=== PATIENT | male | born 1990 | race Hispanic/Latino ===

== ENCOUNTER 2016-11-18 15:42 | Emergency (ER) | payer OTHER ==
[~2016-11-18] VITALS: Ht 152.4 cm; Wt 63.5 kg
[~2016-11-18 15:42] MED LIST: AMOXICILLIN500 M1 PO; AMOXICILLIN500 M3 PO; AUGMENTIN 875 M1 TAB PO; IBU800 MG PO; TRAMADOL50 MG PO; TYLENOL #31 TAB PO; VICODIN 5-3001 EACH PO
--- NOTE | 2016-11-18 15:58 | ED PSYCHIATRIC COMPLAINT ---
See Addendum History of Present Illness General Chief Complaint: ETOH/Drug Related Complaint Stated Complaint: SMOKED MARIJUANA, BAD REACTION ??LACED MJ Source: patient, old records, EMS Exam Limitations: no limitations Vital Signs & Intake/Output Vital Signs & Intake/Output Vital Signs Date Time Temp Pulse Resp B/P B/P Pulse O2 O2 Flow FiO2 Mean Ox Delivery Rate 11/18 1700 98.8 74 18 126/69 98 Room Air 11/18 1552 Room Air 11/18 1547 82 18 133/84 97 Room Air Allergies Coded Allergies: NO KNOWN ALLERGIES (02/05/16) Reconcile Medications No Known Home Medications Triage Note: BIBA AFTER SMOKING MARIJUANA AND HAVING A BAD REACTION. FELT ANXIOUS, RACING THOUGHTS AND THAT HE COULDNT BREATH (SHALLOW BREATHS)-CONCERNED HE MARIJUANA MIGHT BE LACED WITH SOMETHING BECAUSE NORMALLY HE JUST FEELS RELAXED WHEN SMOKING. STATES HE SMOKES DAILY. ADMITS TO OTHER DRUG USE A FEW DAYS AGO BUT DOES NOT KNOW WHAT HE TOOK. UPON ARRIVAL STATES HE FEELS MUCH BETTER. ORIENTED X3, CALM AND COOPERATIVE. IN NO OVERT DISTRESS Triage Nurses Notes Reviewed? yes Onset: Just prior to arrival Duration: hour(s):, constant, continues in ED Timing: recent history Severity: moderate Associated Symptoms: anxiety HPI: 5 hours prior to admission patient admits to smoking marijuana but did not give him the usual feeling. Reports going to the [facility] became dizzy and sick to his stomach on one of the rides. He denies fever chills nausea vomiting diarrhea abdominal pain chest pain shortness breath headache dysuria rash bleeding or other coingestants. Past History Travel History Traveled to [place] past 21 day No Medical History Any Pertinent Medical History? see below for history Neurological: NONE EENT: NONE Cardiovascular: NONE Respiratory: NONE Gastrointestinal: NONE Hepatic: NONE Renal: NONE Musculoskeletal: NONE Psychiatric: NONE Endocrine: NONE Blood Disorders: NONE Cancer(s): NONE METAL TRIMMER/Reproductive: chlamydia Surgical History Surgical History: N Psychosocial History What is your primary language Telugu Tobacco Use: Current Daily Use Daily Tobacco Use Amount/Type: => 5 Cigarettes daily ETOH Use: occasional use Illicit Drug Use: marijuana Family History Hx Contributory? No Review of Systems Review of Systems Constitutional: Reports: no symptoms. EENTM: Reports: no symptoms. Respiratory: Reports: no symptoms. Cardiovascular: Reports: no symptoms. GI: Reports: no symptoms. Genitourinary: Reports: no symptoms. Musculoskeletal: Reports: no symptoms. Skin: Reports: no symptoms. Neurological/Psychological: Reports: see HPI, other. Hematologic/Endocrine: Reports: no symptoms. Immunologic/Allergic: Reports: no symptoms. All Other Systems: Reviewed and Negative Physical Exam Physical Exam General Appearance: well developed/nourished, mild distress Head: atraumatic Eyes: Bilateral: PERRL, EOMI. Ears, Nose, Throat: normal pharynx, normal ENT inspection, hearing grossly normal Neck: normal inspection, supple Respiratory: normal breath sounds Cardiovascular: regular rate/rhythm Gastrointestinal: soft, non-tender Extremities: normal range of motion Neurological/Psychiatric: no motor/sensory deficits, awake, alert, anxious, molecular biology director II-XII nml as tested, oriented x 3 Appearance/Memory/Insight: denies illness, impaired insight Behavoir/Eye Contact/Speech: cooperative, normal speech Thoughts/Hallucinations: normal thought pattern, no apparent hallucination Skin: intact, normal color, warm/dry SAD PERSONS Done? patient not suicidal Progress Differential Diagnosis: drug intoxication, drug overdose, drug withdrawal Plan of Care: Current Medications Sig/Omari Start time Last Medication Dose Stop Time Status Admin Lorazepam 1 MG ONE ONE 11/18 1600 UNVr (Ativan) 11/18 1601 Departure Departure Time of Disposition: 1638 Disposition: HOME OR SELF CARE Condition: Stable Clinical Impression Primary Impression: Marijuana abuse Referrals: PATIENT HAS NO PRIMARY CARE DR (PCP/Family) Departure Forms: General Discharge Information Prescriptions: Current Visit Scripts No Known Home Medications
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
[2016-11-18 19:00] VITALS: BP 112/56
== END 2016-11-18 19:15 ==
LOC: ERH 15:42
DX: F12.10 Cannabis abuse, uncomplicated (principal)
CPT/HCPCS: 80307

== ENCOUNTER 2017-07-06 16:40 | Inpatient (IN) | payer OTHER ==
[~2017-07-06] VITALS: Ht 170.2 cm; Wt 64.5 kg
[~2017-07-06 16:40] MED LIST changes: +ATIVAN0.5 M1 PO; +CLONIDINE HCL0.1 MG PO; +DEPAKOTE ER250 M1 PO; +DEPAKOTE ER500 M1 PO; +DIVALPROEX SOD250 M2 PO; +DIVALPROEX SOD500 M2 PO; +IBUPROFEN800 M1 PO; +KEFLEX500 M1 PO; +LEVSIN-SL0.125 MG SL; +LEVSIN0.125 M1 PO; +MELATONIN3 M4 PO; +NALTREXONE HCL50 M1 PO; +NICOTINE PATCH1 EAC1 TOP; +NICOTINE PATCH1 EAC2 TOP; +NICOTINE PATCH1 EAC3 TOP; +OLANZAPINE10 M1 PO; +OLANZAPINE20 M1 PO; +OLANZAPINE5 M2 PO; +OLANZAPINE7.5 M1 PO; +QUETIAPINE FUM100 M1 PO; +SEROQUEL50 M1 PO; +ZOFRAN ODT4 M1 SL
--- NOTE | 2017-07-06 16:55 | ED PSYCHIATRIC COMPLAINT ---
History of Present Illness General Chief Complaint: Psychiatric Related Complaint Stated Complaint: BIBA ON PEER FOR PSYCHOSIS Source: patient, old records, EMS, police Exam Limitations: clinical condition Vital Signs & Intake/Output Vital Signs & Intake/Output Vital Signs Date Time Temp Pulse Resp B/P B/P Pulse O2 O2 Flow FiO2 Mean Ox Delivery Rate 07/07 0946 966.8 110 22 110/76 98 Room Air 07/07 0639 97.7 97 18 123/73 97 Room Air 07/07 0333 72 16 07/06 2306 80 18 147/84 99 Room Air 07/06 1855 96.0 122 18 150/73 99 Room Air 07/06 1701 95.7 92 18 165/100 97 Room Air Allergies Coded Allergies: NO KNOWN ALLERGIES (02/05/16) Reconcile Medications Naltrexone HCl 50 MG TABLET 1 TAB PO DAILY prevention Naltrexone 50 mg po daily Quetiapine Fumarate 100 MG TABLET 3 TAB PO AT BEDTIME mood stabilizer Quetiapine Fumarate (Seroquel) 50 MG TABLET 50 MG PO QAM mood stabilizer Triage Nurses Notes Reviewed? yes HPI: Patient brought in on a police paper after he locked himself in his bathroom at 3:00 in the morning and would not open the door all day. His physician or nurse went to give him his medications previously refused to open the door and take his medications. Patient has multiple ED visits and admissions for the same. His uncooperative upon presentation to the emergency room. Patient has tangential thinking. (Harshal HENDERSON,Gary Lion) Past History Travel History Traveled to [place] past 21 day No Medical History Any Pertinent Medical History? see below for history Neurological: NONE EENT: NONE Cardiovascular: NONE Respiratory: NONE Gastrointestinal: NONE Hepatic: NONE Renal: NONE Musculoskeletal: NONE Psychiatric: anxiety, depression, psychosis, substance abuse Endocrine: NONE Blood Disorders: NONE Cancer(s): NONE CLINICAL TEAM MANAGER/Reproductive: chlamydia History of MRSA: No History of VRE: No History of CDIFF: No Tetanus Vaccine: 03/09/17 Surgical History Surgical History: non-contributory, N Psychosocial History Who do you live with Mother What is your primary language Indonesian Tobacco Use: Never used ETOH Use: denies use Illicit Drug Use: denies illicit drug use Family History Hx Contributory? No (Harshal HENDERSON,Gary Lion) Review of Systems Review of Systems Constitutional: Reports: no symptoms. EENTM: Reports: no symptoms. Respiratory: Reports: no symptoms. Cardiovascular: Reports: no symptoms. GI: Reports: no symptoms. Genitourinary: Reports: no symptoms. Musculoskeletal: Reports: no symptoms. Skin: Reports: no symptoms. Neurological/Psychological: Reports: no symptoms. Hematologic/Endocrine: Reports: no symptoms. Immunologic/Allergic: Reports: no symptoms. All Other Systems: Reviewed and Negative (Harshal HENDERSON,Gary Lion) Physical Exam Physical Exam General Appearance: well developed/nourished, mild distress Head: atraumatic Eyes: Bilateral: PERRL, EOMI. Ears, Nose, Throat: normal pharynx, normal ENT inspection, hearing grossly normal Neck: normal inspection, supple Respiratory: normal breath sounds Cardiovascular: regular rate/rhythm Gastrointestinal: soft, non-tender Extremities: normal range of motion Neurological/Psychiatric: no motor/sensory deficits, awake, agitated Appearance/Memory/Insight: denies illness Behavoir/Eye Contact/Speech: uncooperative, refused to answer Thoughts/Hallucinations: TANGENTAL Skin: intact, normal color, warm/dry SAD PERSONS Done? CRISIS CONSULT OBTAINED (Harshal HENDERSON,Gary Lion) Progress Differential Diagnosis: drug intoxication, drug overdose, drug withdrawal, electrolyte abnormality Plan of Care: Orders Procedure Date/time Status Continuous Observation Monitor 07/07 1900 Active Continuous Observation Monitor 07/07 1500 Active Continuous Observation Monitor 07/07 1100 Active Admit to inpatient psych 07/07 1047 Active URINE DRUGS OF ABUSE 07/07 0730 Complete URINALYSIS 07/07 0730 Complete Continuous Observation Monitor 07/07 0700 Active Restraint- Discontinue 07/06 1800 Active Restraint- Behavioral (Order) 07/06 1656 Active Continuous Observation Monitor 07/06 1654 Active ETHANOL 07/06 1654 Complete COMPREHENSIVE METABOLIC PANEL 07/06 1654 Complete CBC WITHOUT DIFFERENTIAL 07/06 165 Complete ED CRISIS PSYCH CONSULT 07/06 1654 Active Laboratory Tests 07/07/17 0743: Urine Opiates Screen < 100.00, Methadone Screen 75, Barbiturate Screen < 60, Ur Phencyclidine Scrn 14.00, Amphetamines Screen 203, U Benzodiazepines Scrn < 85, Urine Cocaine Screen < 50, Urine Cannabis Screen 79.10 H, Urine Color ARISTEO, Urine Clarity CLEAR, Urine pH 6.0, Ur Specific [place] >= 1.030, Urine Protein TRACE H, Urine Ketones 15 H, Urine Nitrite NEG, Urine Bilirubin NEG@ICTO, Urine Urobilinogen 0.2, Ur Leukocyte Esterase NEG, Ur Microscopic SEDIMENT EXAMINED, Urine RBC 3-5, Urine WBC 1-3 H, Urine Bacteria RARE H, Urine Mucus PACKD H, Urine Hemoglobin TRACE-INTACT H, Urine Glucose NEG 07/06/17 1728: Anion Gap 20 H, Estimated GFR > 60, BUN/Creatinine Ratio 20.0, Glucose 97, Calcium 10.4 H, Total Bilirubin 0.9, AST 28, ALT 38, Alkaline Phosphatase 65, Total Protein 8.8 H, Albumin 5.3 H, Globulin 3.5, Albumin/Globulin Ratio 1.5, CBC w Diff NO MAN DIFF REQ, RBC 5.05, MCV 87.4, MCH 29.7, RDW 13.4, MPV 7.6, Gran % 78.6 H, Lymphocytes % 12.2 L, Monocytes % 8.2, Eosinophils % 0.7, Basophils % 0.3, Absolute Granulocytes 7.5 H, Absolute Lymphocytes 1.2, Absolute Monocytes 0.8 H, Absolute Eosinophils 0.1, Absolute Basophils 0, PUBS MCHC 34.0, Serum Alcohol < 10.0 07/06/17 1654: Methadone Screen Cancelled, Barbiturate Screen Cancelled, Ur Phencyclidine Scrn Cancelled, Amphetamines Screen Cancelled, U Benzodiazepines Scrn Cancelled, Urine Cocaine Screen Cancelled, Urine Cannabis Screen Cancelled, Urine Color Cancelled, Urine Clarity Cancelled, Urine pH Cancelled, Ur Specific [place] Cancelled, Urine Protein Cancelled, Urine Ketones Cancelled, Urine Nitrite Cancelled, Urine Bilirubin Cancelled, Urine Urobilinogen Cancelled, Ur Leukocyte Esterase Cancelled, Ur Microscopic Cancelled, Urine Hemoglobin Cancelled, Urine Glucose Cancelled Hand-Off Endorsed To: Iman HENDERSON,Willard Ballard Endorsed Time: 1899 Pending: consult (Harshal HENDERSON,Gary Lion) Comments: 07/06/2017 7:15:42 PM patient signed out to me by Dr. Caputo at shift change management director. 07/07/2017 7:37:48 AM patient signed out to Dr. Walsh at shift change management director. (Iman HENDERSON,Willard Ballard) Departure Departure Disposition: STILL A PATIENT Condition: Stable Clinical Impression Primary Impression: Bipolar 1 disorder Referrals: Anayeli Felder MD (PCP/Family) Departure Forms: Customer Survey General Discharge Information (Harshal HENDERSON,Gary Lion) Psych Admission Note Psychiatric Admission: I have seen and evaluated ANGYTIARA. I have also reviewed all the pertinent lab results and diagnostic results. ANGYTIARA will be admitted to our inpatient Psychiatric unit for treatment and care. (Jillian HENDERSON,Brayan)
[2017-07-06 17:46] LABS: ABSOLUTE BASOPHIL COUNT 0 /CUMM (0.0-0.2); ABSOLUTE EOSINOPHIL COUNT 0.1 /CUMM (0.0-0.7); ABSOLUTE GRANULOCYTE CT 7.5 /CUMM (1.4-6.5); ABSOLUTE LYMPH COUNT 1.2 /CUMM (1.2-3.4); ABSOLUTE MONOCYTE COUNT 0.8 /CUMM (0.10-0.60); BASOPHIL % 0.3 % (0.0-2.0); EOSINOPHIL % 0.7 % (0-5); GRANULOCYTE % 78.6 % (42.2-75.2); HEMATOCRIT 44.2 % (42-52); MEAN CORPUSCULAR HGB 29.7 PG (27.0-31.0); MEAN CORPUSCULAR VOLUME 87.4 FL (80.0-94.0); MEAN PLATELET VOLUME 7.6 FL (7.4-10.4); PLATELET COUNT 315 /CUMM (130-400); RBC DISTRIBUTION WIDTH 13.4 % (11.5-14.5); RED BLOOD CELL CT 5.05 /CUMM (4.70-6.10); WHITE BLOOD CELL COUNT 9.5 /CUMM (4.8-10.8)
--- NOTE | 2017-07-06 20:58 | ED PSY CRISIS COLLATERAL NOTE ---
See Addendum Collateral Note Collateral Note Family/Inform/Yuan Contacts: Spoke with Mom, Mia Ellison, on the phone for collateral. Mom reported that he has not eaten or slept since Tuesday 07/03 night and that last night , he was awake all night, locked in the bathroom of their home. He would not let mom in, even when she had to use the bathroom herself. She reported he continued to say "you don't need to get in here" and became increasingly angry and hostile. Mom reported that he took one med that visiting nurse left him this morning but not the Seroquel which she believed he needed. She reported a recent med change "a shot" which she explained is supposed to be long lasting, prescribed by Michael REYNOSO. She stated she still thinks he needs the pills and worries the injection isn't working. She said "he comes in here all the time for this stuff so I don't know what is going to happen". She reported she thought perhaps he took something, stating he smokes marijuana and takes "corby " but she is unsure of the type of drug that is.
--- NOTE | 2017-07-06 21:48 | ED PSYCH CRISIS CONSULTATION ---
See Addendum Crisis Consult Basic Assessment Date of Consult: 07/06/17 Responsible Person/Accompanied By: BIBA/PEER Insurance Authorization: Insurance #1: Insurance name: KEARNEY 140Fire Phone number: Policy number: [id number] Group number: [id number] Authorization number: ED Provider: Patient's ED Provider: Gary Caputo MD Primary Care Physician: Patient's PCP: Anayeli Felder MD PCP's Current Psychiatrist: Anayeli Felder MD Chief Complaint: Psychiatric Related Complaint Patient's Quote: "It's not right, but I handled it not immature" Present Illness: Pt is a 26 year old male, he is out of restraints and keeping in control of himself. Pt is known to have a close relationship with [facility], recently due to psychotic episodes, and med management concerns. Pt has been in the emergency room a few times in June 2017, and is currently in our IOP. Pt has a visiting nurse and lives with his Mother. Upon evaluation this evening , pt represents with visual hallucinations stating "who is that", as he looks to the left in his hospital room. Pt states I've been seeing demons, and "maybe that is something from my past". Pt reports "its not right, but I handled it not immature, ya know?". Pt not making sense, but is engaged in full intent eye contact. Pt is intense and speaking about being in the bathroom prior to coming in the the ER, he recalls the nurse trying to get him to come out and states they were whispering to his Mother to get me to come here. He states " I was in the bathroom, ya know how I rap in there, I was rapping all day". Pt is calm, although is experiencing internal stimuli including ah and vh. He was expected to get an injectble on the Dr. Felder confirmed he got the medicine. He reports the medicine "in the pills is empty", which is why he wasn't going to take it today. Pt asking to leave and call his Mother, pt informed he is on a PEER and needs to be cleared from the psychiatry department in the morning. Pt is having trouble resting at this time, and doesn't think he will be able to sleep. Pt denies recreational drug use. Mom reports he may have done "mollies". Pt states "Id smoke 100's L's right now if I could but I'm on probation". Pt denies si/hi. Patient's Address: [address] [place] [address] Other Phone Number: Who Do You Live With? Mother Family/Informants Interviewed: see note Allergies - Coded Allergies: NO KNOWN ALLERGIES (02/05/16) Current Medications - Scheduled Medications Naltrexone HCl 50 MG TABLET 1 TAB PO DAILY prevention #14 TAB Prescribed by Gary Rice on 06/04/17 Quetiapine Fumarate 100 MG TABLET 3 TAB PO AT BEDTIME mood stabilizer #14 TAB Prescribed by Gary Rice on 06/04/17 Quetiapine Fumarate (Seroquel) 50 MG TABLET 50 MG PO QAM mood stabilizer #14 TAB Prescribed by Gary Rice on 06/04/17 Laboratory Results: Laboratory Tests 07/06/17 1728: Anion Gap 20 H, Estimated GFR > 60, BUN/Creatinine Ratio 20.0, Glucose 97, Calcium 10.4 H, Total Bilirubin 0.9, AST 28, ALT 38, Alkaline Phosphatase 65, Total Protein 8.8 H, Albumin 5.3 H, Globulin 3.5, Albumin/Globulin Ratio 1.5, CBC w Diff NO MAN DIFF REQ, RBC 5.05, MCV 87.4, MCH 29.7, RDW 13.4, MPV 7.6, Gran % 78.6 H, Lymphocytes % 12.2 L, Monocytes % 8.2, Eosinophils % 0.7, Basophils % 0.3, Absolute Granulocytes 7.5 H, Absolute Lymphocytes 1.2, Absolute Monocytes 0.8 H, Absolute Eosinophils 0.1, Absolute Basophils 0, PUBS MCHC 34.0, Serum Alcohol < 10.0 Past History Past Medical History Neurological: NONE EENT: NONE Cardiovascular: NONE Respiratory: NONE Gastrointestinal: NONE Hepatic: NONE Renal: NONE Musculoskeletal: NONE Psychiatric: anxiety, depression, psychosis, substance abuse Endocrine: NONE Blood Disorders: NONE Cancer(s): NONE SHOE REPAIRER/Reproductive: chlamydia Past Surgical History Surgical History: none, non-contributory Psychosocial History Strengths/Capabilities: Supportive mother Physical Limitations (Interventions): none observed or identified Psychiatric Treatment History Psych Treatment Psychiatric Treatment Yes Inpatient Treatment Yes Outpatient Treatment Yes Location of Treatment [facility]/ IOP Reason for Treatment psychosis Dates of Treatment currently and May 2017 last admission Response to Treatment trying to be compliant Diagnosis by History: F29 Schizophrenia spectrum, unspecified F12.20 Cannabis Use Disorder F32.9 Unspecified Depression Substance Use/Abuse History Drug Use/Abuse Substances Used/Abused Yes Substance Used/Abused Marijuana First Use teenage Last Used unknown How much used/taken varies How often varies For how long on and off for years Route of use smokes Substance Abuse Treatment Substance Abuse Treatment Past Substance Abuse [place] Yes Inpatient Treatment Yes Outpatient Treatment Yes Location of Treatment [place] [facility] Reason for Treatment schizophrenia/ marajuana use Dates of Treatment currently Response to Treatment attends Comments: "I'd smoke 100s of L's right now of I could but Im on probation" Current Mental Status Mental Status Orientation: Confused Affect: Anxious, Inappropriate, Labile Speech: Incoherent, Mumbled Neuro-vegetative: Concentration Poor, Sleep Disturbance Appearance Appearance- Dress/Hygiene: Shaved eyebrows otherwise wnl Behaviors Thought Process: Disorganized Thought Content: Auditory Hallucinations, Paranoid, Visual Hallucinations Memory: WNL Insight: Poor SI/HI Risk Assessment Past Suicidal Ideation/Attempts Yes Current Suicidal Ideation/Att No Past Homicidal Ideation/Att: No Current Homicidal Ideation/Attempts No Degree of Intent: None Gravely Disabled: Lack of Insight Risk Factors: high anxiety/distress, SA/MH hospitalized, poor impulse control, male Lethality Ratin (mild) PTSD Checklist PTSD Done? pt unable to participate ED Management Sitter: Yes Restraints: Yes (not currently) DSM5/PS Stressors/Medical Prob Diagnosis' (DSM 5, Stressors, Medical): F29 Schizophrenia spectrum, unspecified F12.20 Cannabis Use Disorder F32.9 Unspecified Depression Current GAF: 28 Departure Disposition Psych Medical Clearance Date: 07/06/17 Medically Cleared at: 2030 Time Started: 2029 Time Ended: 2141 Psychiatrist Consulted: Anayeli Felder MD Date Disposition Established: 07/06/17 Time Disposition Established: 2141 Plan for Disposition - Modality: IOP Facility: [facility] Follow-up Appt Date: 07/07/17 Contact: [facility] Telephone: [phone] Rationale for Disposition: Consulted with Dr. Felder, pt held due to PEER, but recommends discharge with plan to attend [facility] tomorrow morning. Referrals Anayeli Felder MD (PCP/Family)
--- NOTE | 2017-07-07 11:39 | IP CRISIS DIAG ASSESS PSYCH ---
Diagnostic Assessment Basic Assessment Insurance Authorization: Insurance #1: Insurance name: [facility] Phone number: Policy number: [id number] Group number: [id number] Authorization number: # [id number] 07/07/17: This senior medical writer spoke to Preeti and joe Robles to give clinical information. Pt approved for 7 days 07/07-07/13 with review due on the with Tracy X [id number] Member Name Member ID Member Subscriber Name Subscriber ID TIARA TRAVIS [id number] 1990 TIARA TRAVIS [id number] Pended Authorization # Client Authorization # Type of Request [id number] INITIAL Date of Admission/ Start of Services Requested From Submission Date 07/07/2017 07/07/2017 07/07/2017 Primary Care Physician: Patient's PCP: Anayeli Felder MD PCP's Patient's Quote: "It's not right, but I handled it not immature" Present Illness: Pt is a 26 year old male, he is out of restraints and keeping in control of himself. Pt is known to have a close relationship with [facility], recently due to psychotic episodes, and med management concerns. Pt has been in the emergency room a few times in June 2017, and is currently in our IOP. Pt has a visiting nurse and lives with his Mother. Upon evaluation this evening , pt represents with visual hallucinations stating "who is that", as he looks to the left in his hospital room. Pt states I've been seeing demons, and "maybe that is something from my past". Pt reports "its not right, but I handled it not immature, ya know?". Pt not making sense, but is engaged in full intent eye contact. Pt is intense and speaking about being in the bathroom prior to coming in the the ER, he recalls the nurse trying to get him to come out and states they were whispering to his Mother to get me to come here. He states " I was in the bathroom, ya know how I rap in there, I was rapping all day". Pt is calm, although is experiencing internal stimuli including ah and vh. He was expected to get an injectble on the Dr. Felder confirmed he got the medicine. He reports the medicine "in the pills is empty", which is why he wasn't going to take it today. Pt asking to leave and call his Mother, pt informed he is on a PEER and needs to be cleared from the psychiatry department in the morning. Pt is having trouble resting at this time, and doesn't think he will be able to sleep. Pt denies recreational drug use. Mom reports he may have done "mollies". Pt states "Id smoke 100's L's right now if I could but I'm on probation". Pt denies si/hi. >>>>>Cuca Wander [facility] Crisis re-evaluated pt this am. He denies SI/HI/AH/VH at present. He presents with poor eye contact and insight into MH/SA. Per pt he cannot recall yesterday or meeting with the previous speech and language clinician. Pt is unable to provide coherent story of why he was agitated upon coming in to the ED for evaluation or why he locked himself in the bathroom for over 3 hours. Pt said he usually goes into the bathroom to smoke or lays down in the shower for a few hours. He admits to using cannabis but denies PCP use at this time. Pt has hx of PCP and heroin use. Pt said he does not need rehab or medications . This senior medical writer spoke with JUANCHO REYNOSO and pt has had recent medication change. Per pt's insurance the Haldol IM cannot be covered. It is unclear if pt will need to switch anti-psychotics due to insurance complications. Case consulted with Dr. Do and recommends inpatient admission as pt is acute risk to self and others at this time. Patient's Address: [address] [place] [address] Other Phone Number: Who Do You Live With? Mother Feel Safe Where You Live? Yes Marital Status: single Do You Have Children? No Primary Language? [place]ore[place] Language(s) Spoken At Home: [place]orese Family/Informants Interviewed: see note Allergies - Coded Allergies: NO KNOWN ALLERGIES (02/05/16) Current Medications - Scheduled Medications Naltrexone HCl 50 MG TABLET 1 TAB PO DAILY prevention #14 TAB Prescribed by Gary Rice on 06/04/17 Quetiapine Fumarate 100 MG TABLET 3 TAB PO AT BEDTIME mood stabilizer #14 TAB Prescribed by Gary Rice on 06/04/17 Quetiapine Fumarate (Seroquel) 50 MG TABLET 50 MG PO QAM mood stabilizer #14 TAB Prescribed by Gary Rice on 06/04/17 Past History Past Surgical History Surgical History NONE Abuse/Trauma History Trauma History/Current Trauma: Denies Legal History Current Legal Status: on probation Have you ever been arrested? Yes Number of Arrests: [address] Dates: none Web Search Evaluator yes Psychosocial History Strengths/Capabilities: Supportive mother Physical Limitations (Interventions): none observed or identified Psychiatric Treatment History Psych Treatment Psychiatric Treatment Yes Inpatient Treatment Yes Outpatient Treatment Yes Location of Treatment CPS/ IOP Reason for Treatment psychosis Dates of Treatment currently and May 2017 last admission Response to Treatment trying to be compliant Diagnosis by History: F29 Schizophrenia spectrum, unspecified F12.20 Cannabis Use Disorder F32.9 Unspecified Depression Risk Factors: high anxiety/distress, SA/MH hospitalized, poor impulse control, male Substance Use/Abuse History Drug Use/Abuse minimum 12mo Hx Substances Used/Abused Yes Substance Used/Abused Marijuana First Use teenage Last Used unknown How much used/taken varies How often varies For how long on and off for years Route of use smokes Substance Abuse Treatment Substance Abuse Treatment Past Substance Abuse [place] Yes Inpatient Treatment Yes Outpatient Treatment Yes Location of Treatment [facility] Reason for Treatment schizophrenia/ marajuana use Dates of Treatment currently Response to Treatment attends Sexual History Sexually Active No # of partners 0 Sexual Orientation Heterosexual Use of Protection No Sexual Concerns: none stated Education History Highest Level of Education: 11th grade Intends to get GED; reinforced this visit. Preferred Learning Style: visual Current Mental Status Mental Status Orientation: Confused Affect: Anxious, Inappropriate, Labile Speech: Incoherent, Mumbled Neuro-vegetative: Concentration Poor, Sleep Disturbance Appearance Appearance- Dress/Hygiene: Shaved eyebrows otherwise wnl Behaviors Thought Process: Disorganized Thought Content: Auditory Hallucinations, Paranoid, Visual Hallucinations Memory: WNL Insight: Poor SI/HI Risk Assessment - Minimum 6mo History- Past Suicidal Ideation/Attempts Yes Current Suicidal Ideation/Att No Past Homicidal Ideation/Att: No Current Homicidal Ideation/Attempts No Degree of Intent: None Gravely Disabled: Lack of Insight Risk Factors: high anxiety/distress, SA/MH hospitalized, poor impulse control, male Lethality Ratin (mild) Needs/Init TX Plan/Goals: Mood stabilization and safety, group and individual therapy, psychoeducation, medication consulation , family meeting and coping skills. AUDIT-C Questionnaire: AUDIT-C Questionnaire: Response Value ETOH use in the past year Never 0 # drinks typical/day Doesn't Drink 0 6 or > drinks per occasion Never 0 Total 0 DSM5/PS Stressors/Medical Prob Diagnosis' (DSM 5, Stressors, Medical): F29 Schizophrenia spectrum, unspecified F12.20 Cannabis Use Disorder F32.9 Unspecified Depression Current GAF: 28
--- NOTE | 2017-07-07 11:45 | SOCIAL WORKER SOCIAL HX PSYCH ---
Social History Basic Assessment Insurance Authorization: Insurance #1: Insurance name: [facility] Phone number: Policy number: [id number] Group number: [id number] Authorization number: Curr Source of Income/Entitlements: Medicaid Primary Care Physician: Patient's PCP: Anayeli Felder MD PCP's Present Problem: Pt is a 26 year old male, he is out of restraints and keeping in control of himself. Pt is known to have a close relationship with [facility], recently due to psychotic episodes, and med management concerns. Pt has been in the emergency room a few times in June 2017, and is currently in our IOP. Pt has a visiting nurse and lives with his Mother. Upon evaluation this evening , pt represents with visual hallucinations stating "who is that", as he looks to the left in his hospital room. Pt states I've been seeing demons, and "maybe that is something from my past". Pt reports "its not right, but I handled it not immature, ya know?". Pt not making sense, but is engaged in full intent eye contact. Pt is intense and speaking about being in the bathroom prior to coming in the the ER, he recalls the nurse trying to get him to come out and states they were whispering to his Mother to get me to come here. He states " I was in the bathroom, ya know how I rap in there, I was rapping all day". Pt is calm, although is experiencing internal stimuli including ah and vh. He was expected to get an injectble on the Dr. Felder confirmed he got the medicine. He reports the medicine "in the pills is empty", which is why he wasn't going to take it today. Pt asking to leave and call his Mother, pt informed he is on a PEER and needs to be cleared from the psychiatry department in the morning. Pt is having trouble resting at this time, and doesn't think he will be able to sleep. Pt denies recreational drug use. Mom reports he may have done "mollies". Pt states "Id smoke 100's L's right now if I could but I'm on probation". Pt denies si/hi.>>>>Cuca Vickers [facility] Crisis re-evaluated pt this am. He denies SI/HI/AH/VH at present. He presents with poor eye contact and insight into MH/SA. Per pt he cannot recall yesterday or meeting with the previous electrical engineering professor. Pt is unable to provide coherent story of why he was agitated upon coming in to the ED for evaluation or why he locked himself in the bathroom for over 3 hours. Pt said he usually goes into the bathroom to smoke or lays down in the shower for a few hours. He admits to using cannabis but denies PCP use at this time. Pt has hx of PCP and heroin use. Pt said he does not need rehab or medications . This racebook writer spoke with JUANCHO REYNOSO and pt has had recent medication change. Per pt's insurance the Haldol IM cannot be covered. It is unclear if pt will need to switch anti-psychotics due to insurance complications. Case consulted with Dr. Do and recommends inpatient admission as pt is acute risk to self and others at this time. Primary Language? [place] Language(s) Spoken At Home: [place] Island[place] Living Situation Other Living Arrangement: relative's/guardian's tariq Feel Safe Where You Are Living Yes Allergies - Coded Allergies: NO KNOWN ALLERGIES (02/05/16) Current Medications - Scheduled Medications Naltrexone HCl 50 MG TABLET 1 TAB PO DAILY prevention #14 TAB Prescribed by Gary Rice on 06/04/17 Quetiapine Fumarate 100 MG TABLET 3 TAB PO AT BEDTIME mood stabilizer #14 TAB Prescribed by Gary Rice on 06/04/17 Quetiapine Fumarate (Seroquel) 50 MG TABLET 50 MG PO QAM mood stabilizer #14 TAB Prescribed by Gary Rice on 06/04/17 Past History Past Medical History Neurological: NONE EENT: NONE Cardiovascular: NONE Respiratory: NONE Gastrointestinal: NONE Hepatic: NONE Renal: NONE Musculoskeletal: NONE Psychiatric: anxiety, depression, psychosis, substance abuse Endocrine: NONE Blood Disorders: NONE Cancer(s): NONE COMMUNITY CULTURAL DEVELOPMENT OFFICER/Reproductive: chlamydia Past Surgical History Surgical History: non-contributory, N /Family History Place/Country of Origin: [place], [place] Childhood Family Constellation: 05/27/17: He grew up with his mother, grandmother, one brother and one sister, aunt and uncle. He met his father once, but talks to him occasionally. Raised by his Mom. Did not know his father as a child. Has 2 brothers and 2 sisters. Primary Childhood Caretakers: mother, grandparent(s), aunt, uncle Family Life During Childhood: "Good" DCF Involvement? No Relationship w/Mother: Pt does not know his mother's age. Reports he has a "good" relationship with his Mom. 05/27/17: Endorses above, but he is not happy now with Mom. Relationship w/Father: Does not know his father's age. states he and his father "understand each other." 05/27/17: Relationship is 'OK.' Any Sibling(s)? Yes Sibling's Gender(s)/Age(s): female Sibling 1:, male Sibling 2: Relationship w/Sibling(s): "good" Relationship w/Friends: "I have some good friends" 05/27/17: "I can't remember the last time I had an argument with a friend." Family Psych/Sub Abuse/Add Hx: denies Abuse/Trauma History Trauma History/Current Trauma: Denies Legal History Legal Guardian/Address/Phone: NA Current Legal Status: on probation Pending Court Dates: none Have you ever been arrested Yes Number of Arrests: 3 Hx of Juvenile Legal Charges? Yes If Yes: theft Hx of Adult Legal Charges? Yes If Yes: misdemeanor List/Date Most Recent Lgl Chgs: unknown Chgs/Dts/Incarcerations/Sentnc Two years left on probation. Civil Proceedings: na Domestic Relations Court: na Child Protective Serv Involvmnt na Tire Bagger yes Psychosocial History Primary Support System: mother, sibling(s), grandparent(s), friend Strengths/Capabilities: Supportive mother Weaknesses: relapse Physical Limitations (Interventions): none observed or identified Last Physical: Two years History of Seizures? No History of Blackouts? No ADL Limitations: none reported [place]/Social/Peer Relations reports he has supportive friends Meaningful Activities: being outdoors 05/27/17 The patient is good at art. Childhood Jewish: Scientology Current Sikh Affiliation: Lutheran, "I would follow what my family does; Lutheran. Is Spirituality Important to You? yes Patient's Ethnicity: [place] Cultural/Ethnic Issues: none reported Are There Developmental Issues? No Milestones Achieved: fine motor, gross motor Psychiatric Treatment History Psych Treatment Inpatient Treatment Yes Outpatient Treatment Yes Location of Treatment CPS/ IOP Reason for Treatment psychosis Dates of Treatment currently and May 2017 last admission Response to Treatment trying to be compliant Treatment of Prior Episodes: as above Diagnosis: F29 Schizophrenia spectrum, unspecified F12.20 Cannabis Use Disorder F32.9 Unspecified Depression Psychodynamic Issues: He wants full-time work. Difficult relationship with mother at this time. Risk Factors: high anxiety/distress, SA/MH hospitalized, poor impulse control, male Substance Use/Abuse History Drug Use/Abuse Substance Used/Abused Marijuana First Use teenage Last Used unknown How much used/taken varies How often varies For how long on and off for years Route of use smokes Have Had Periods of Sobriety? No Relapse History? Yes Have You Ever Attended AA? No Do You Attend AA Currently? No Do You Have a Sponsor? No Other Community Resources Used: probation Symptoms of Use: woresning psychosis Substance Abuse Treatment Substance Abuse Treatment Inpatient Treatment Yes Outpatient Treatment Yes Location of Treatment [facility] Reason for Treatment schizophrenia/ marajuana use Dates of Treatment currently Response to Treatment attends Sexual History Sexually Active No # of partners 0 Sexual Orientation Heterosexual Use of Protection No Sexual Concerns: none stated Education History Highest Level of Education: 11th grade Intends to get GED; reinforced this visit. Highest Grade Completed: 11 Vocational Year Completed: na Number of College Years: 0 College Degree/Major: NA Other Degree(s): NA Preferred Learning Style: visual HX of Learning Difficulties: He reports a difficulty with concentration, but not with subjects that he likes. Other diop, no other learing difficulties. Barriers to Learning: None reported Special Communication Needs: None reported Employment History Not in Labor Force: 3-4 yrs ago worked at [employer] and a [employer] No. of Jobs in Last 5 Years: 3 Attendance: He has missed days at [employer]. Performance: Good Comments: Pt said he recently got a job, " [employer] ( ?) " History Have You Been in The ? No If Yes, Explain: NA Type of Discharge: NA Date of Discharge: NA Current Mental Status Problem List: 1. Marijuana abuse 2. PCP (phencyclidine) abuse Mental Status Orientation: Confused Affect: Anxious, Inappropriate, Labile Speech: Incoherent, Mumbled Neuro-vegetative: Concentration Poor, Sleep Disturbance Appearance Appearance- Dress/Hygiene: Shaved eyebrows otherwise wnl Behaviors Thought Process: Disorganized Thought Content: Auditory Hallucinations, Paranoid, Visual Hallucinations Memory: WNL Insight: Poor SI/HI Risk Assessment Past Suicidal Ideation/Attempts Yes Current Suicidal Ideation/Att No Past Homicidal Ideation/Att: No Current Homicidal Ideation/Attempts No Degree of Intent: None Gravely Disabled: Lack of Insight Risk Factors: High Anxiety/Distress, SA/MH Hospitalization(s), Male, Poor impulse control, Substance Abuse Lethality Ratin (mild) - Conclusion and Recommendations for treatment - and discharge planning Summary: Pt is a 26 year old male, he is out of restraints and keeping in control of himself. Pt is known to have a close relationship with [facility], recently due to psychotic episodes, and med management concerns. Pt has been in the emergency room a few times in June 2017, and is currently in our IOP. Pt has a visiting nurse and lives with his Mother. Upon evaluation this evening , pt represents with visual hallucinations stating "who is that", as he looks to the left in his hospital room. Pt states I've been seeing demons, and "maybe that is something from my past". Pt reports "its not right, but I handled it not immature, ya know?". Pt not making sense, but is engaged in full intent eye contact. Pt is intense and speaking about being in the bathroom prior to coming in the the ER, he recalls the nurse trying to get him to come out and states they were whispering to his Mother to get me to come here. He states " I was in the bathroom, ya know how I rap in there, I was rapping all day". Pt is calm, although is experiencing internal stimuli including ah and vh. He was expected to get an injectble on the Dr. Felder confirmed he got the medicine. He reports the medicine "in the pills is empty", which is why he wasn't going to take it today. Pt asking to leave and call his Mother, pt informed he is on a PEER and needs to be cleared from the psychiatry department in the morning. Pt is having trouble resting at this time, and doesn't think he will be able to sleep. Pt denies recreational drug use. Mom reports he may have done "mollies". Pt states "Id smoke 100's L's right now if I could but I'm on probation". Pt denies si/hi. Crisis re-evaluated pt this am. He denies SI/HI/AH/VH at present. He presents with poor eye contact and insight into MH/SA. Per pt he cannot recall yesterday or meeting with the previous electrical engineering professor. Pt is unable to provide coherent story of why he was agitated upon coming in to the ED for evaluation or why he locked himself in the bathroom for over 3 hours. Pt said he usually goes into the bathroom to smoke or lays down in the shower for a few hours. He admits to using cannabis but denies PCP use at this time. Pt has hx of PCP and heroin use. Pt said he does not need rehab or medications . This racebook writer spoke with JUANCHO REYNOSO and pt has had recent medication change. Per pt's insurance the Haldol IM cannot be covered. It is unclear if pt will need to switch anti-psychotics due to insurance complications. Case consulted with Dr. Do and recommends inpatient admission as pt is acute risk to self and others at this time.
--- NOTE | 2017-07-07 19:28 | History & Physical ---
General Information and HPI MD Statement: I have seen and personally examined TIARA TRAVIS and documented this H&P. The patient is a 26 year old M who presented with a patient stated chief complaint of brought in by ambulance on PEER paper]. Source of Information: patient, family, old records Exam Limitations: unable to give history History of Present Illness: 26-year-old white male known to [facility] several ER visits, was brought in on PEER due to locking himself in the bathroom since 3:00 in the morning and slept and hasn't eaten patient lives with his mother with increased paranoia that is after him not very cooperative when he arrived there has been a recent medication change patient is not safe needs to be admitted and evaluated again. Allergies/Medications Allergies: Coded Allergies: NO KNOWN ALLERGIES (02/05/16) Home Med list Naltrexone HCl 50 MG TABLET 1 TAB PO DAILY prevention Naltrexone 50 mg po daily Quetiapine Fumarate 100 MG TABLET 3 TAB PO AT BEDTIME mood stabilizer Quetiapine Fumarate (Seroquel) 50 MG TABLET 50 MG PO QAM mood stabilizer Compliance With Home Meds: UNKNOWN Past History Travel History Traveled to [place] past 21 day No Medical History Neurological: NONE EENT: NONE Cardiovascular: NONE Respiratory: NONE Gastrointestinal: NONE Hepatic: NONE Renal: NONE Musculoskeletal: NONE Psychiatric: anxiety, depression, psychosis, substance abuse Endocrine: NONE Blood Disorders: NONE Cancer(s): NONE ALARM SIGNALER/Reproductive: chlamydia History of MRSA: No History of VRE: No History of CDIFF: No Isolation History: Standard Tetanus Vaccine: 03/09/17 Surgical History Surgical History: non-contributory, N Past Family/Social History Psychosocial History ETOH Use: denies use Illicit Drug Use: denies illicit drug use Review of Systems Review of Systems Constitutional: Reports: see HPI. Exam & Diagnostic Data Last 24 Hrs of Vital Signs/I&O Vital Signs Date Time Temp Pulse Resp B/P B/P Pulse O2 O2 Flow FiO2 Mean Ox Delivery Rate 07/07 1743 97.7 105 18 137/88 98 Room Air 07/07 1551 97.8 91 18 147/95 97 Room Air 07/07 1344 97.0 85 18 106/82 100 Room Air 07/07 1224 97.0 118 22 148/93 96 Room Air 07/07 0946 966.8 110 22 110/76 98 Room Air 07/07 0639 97.7 97 18 123/73 97 Room Air 07/07 0333 72 16 07/06 2306 80 18 147/84 99 Room Air Physical Exam General Appearance Alert, Oriented X3, pacing in the room. Skin No Rashes, No Breakdown HEENT PERRLA, EOMI Neck Supple, No JVD, No thryomegaly, +2 Carotid Pulse wo Bruit, No LAD Lymphatic Axillary nl, Cervical nl Cardiovascular Regular Rate, No Murmurs Lungs Clear to Auscultation, Normal Air Movement Abdomen Soft, No Tenderness, No Hepatospenomegaly Neurological Exam Findings: Normal Gait, Normal Speech, Strength at 5/5 X4 Ext, Normal Tone, Sensation Intact, Cranial Nerves 3-12 NL, Reflexes 2+ Cranial Nerves II through XII: Intact Extremities No Cyanosis, No Edema, Normal Pulses Vascular Normal Pulses, Pulses Symmetrical Last 24 Hrs of Labs/Prince: Laboratory Tests 07/07/17 0743: Urine Opiates Screen < 100.00, Methadone Screen 75, Barbiturate Screen < 60, Ur Phencyclidine Scrn 14.00, Amphetamines Screen 203, U Benzodiazepines Scrn < 85, Urine Cocaine Screen < 50, Urine Cannabis Screen 79.10 H, Urine Color ARISTEO, Urine Clarity CLEAR, Urine pH 6.0, Ur Specific [place] >= 1.030, Urine Protein TRACE H, Urine Ketones 15 H, Urine Nitrite NEG, Urine Bilirubin NEG@ICTO, Urine Urobilinogen 0.2, Ur Leukocyte Esterase NEG, Ur Microscopic SEDIMENT EXAMINED, Urine RBC 3-5, Urine WBC 1-3 H, Urine Bacteria RARE H, Urine Mucus PACKD H, Urine Hemoglobin TRACE-INTACT H, Urine Glucose NEG 07/06/17 1728: Anion Gap 20 H, Estimated GFR > 60, BUN/Creatinine Ratio 20.0, Glucose 97, Calcium 10.4 H, Total Bilirubin 0.9, AST 28, ALT 38, Alkaline Phosphatase 65, Total Protein 8.8 H, Albumin 5.3 H, Globulin 3.5, Albumin/Globulin Ratio 1.5, CBC w Diff NO MAN DIFF REQ, RBC 5.05, MCV 87.4, MCH 29.7, RDW 13.4, MPV 7.6, Gran % 78.6 H, Lymphocytes % 12.2 L, Monocytes % 8.2, Eosinophils % 0.7, Basophils % 0.3, Absolute Granulocytes 7.5 H, Absolute Lymphocytes 1.2, Absolute Monocytes 0.8 H, Absolute Eosinophils 0.1, Absolute Basophils 0, PUBS MCHC 34.0, Serum Alcohol < 10.0 07/06/17 1654: Methadone Screen Cancelled, Barbiturate Screen Cancelled, Ur Phencyclidine Scrn Cancelled, Amphetamines Screen Cancelled, U Benzodiazepines Scrn Cancelled, Urine Cocaine Screen Cancelled, Urine Cannabis Screen Cancelled, Urine Color Cancelled, Urine Clarity Cancelled, Urine pH Cancelled, Ur Specific [place] Cancelled, Urine Protein Cancelled, Urine Ketones Cancelled, Urine Nitrite Cancelled, Urine Bilirubin Cancelled, Urine Urobilinogen Cancelled, Ur Leukocyte Esterase Cancelled, Ur Microscopic Cancelled, Urine Hemoglobin Cancelled, Urine Glucose Cancelled Laboratory Tests 07/07/17 0743: Urine Opiates Screen < 100.00, Methadone Screen 75, Barbiturate Screen < 60, Ur Phencyclidine Scrn 14.00, Amphetamines Screen 203, U Benzodiazepines Scrn < 85, Urine Cocaine Screen < 50, Urine Cannabis Screen 79.10 H, Urine Color ARISTEO, Urine Clarity CLEAR, Urine pH 6.0, Ur Specific [place] >= 1.030, Urine Protein TRACE H, Urine Ketones 15 H, Urine Nitrite NEG, Urine Bilirubin NEG@ICTO, Urine Urobilinogen 0.2, Ur Leukocyte Esterase NEG, Ur Microscopic SEDIMENT EXAMINED, Urine RBC 3-5, Urine WBC 1-3 H, Urine Bacteria RARE H, Urine Mucus PACKD H, Urine Hemoglobin TRACE-INTACT H, Urine Glucose NEG Assessment/Plan As Ranked By This Provider Problem List: 1. Schizophrenia Miscellaneous Miscellaneous Documentation Attending Case Discussed With: Ernestina HENDERSON,Sergo Primary Care Physician: Anayeli Felder MD Patient sees these Specialists Psychiatry Level of Patient Care: [facility] Consults Needed: Consulting Specialty: Psychiatry Consulting Physician: Anayeli Felder MD Reason for Consult: paranoia schizophrenic
[2017-07-07 19:37] VITALS: BP 146/93
--- NOTE | 2017-07-08 11:59 | CPS PROVIDER INIT ASMT PSYCH ---
Psychiatric Admission Underwear Cutter's Note Reviewed: Yes Patient Seen and Examined: Yes Identifying Information: The patient is a 26-year-old single who was brought into the emergency room after his mother called 911 Chief Complaint: The patient believes that he does not need to be here. He claims that his mother is the one who has the problem. Reaction to Hospitalization: He does not like being hospitalized and was asking to be discharged today History of Present Illness Onset of Illness: The patient is known to me from his previous treatment in the intensive outpatient program. The patient has had previous admissions to Inpatient Psychiatry under similar circumstances. The patient had some cannabis in his urine and some PCP (trace amounts) Circumstances Leading to Admission: The patient's mother called 911 because he locked himself in the bathroom reportedly for 3 hours. The patient reported that he was rapping in the bathroom and that the hypertrophy relaxes him. Problem(s) Justifying Need for Admission: Disorganized thinking and paranoia Other HPI: The patient has had previous admissions to Inpatient Psychiatry Inpatient Psychiatry and previous treatment at the intensive outpatient program please refer to the medical record for exact extensive documentation of his history Past Psychiatric History Past Diagnosis(es)- if any: Psychotic disorder not otherwise specified Substance use disorder Past Precipitating Factors- if any: PCP use - Include inpatient and outpatient treatment Treatment History: The patient has had both inpatient psychiatric treatment at [facility] as well as treatment in the intensive outpatient program History of Suicide Attempts or Gestures Ankur has no history of previous suicide attempts Substance Abuse History: The patient has history of using cannabis, his urine shows positive for PCP at the very low amounts Allergies: Coded Allergies: NO KNOWN ALLERGIES (02/05/16) Home Med List: The patient reported that his medications were discontinued and that he was told he is not supposed to be on any medications. It seemed that the patient was recently placed on Haldol Decanoate injection last given on 06/30 50 milligrams - Include any medical condition(s) that may - impact the patient's recovery/remission Past Medical History: The patient is physically healthy Past History Medical History Neurological: NONE EENT: NONE Cardiovascular: NONE Respiratory: NONE Gastrointestinal: NONE Hepatic: NONE Renal: NONE Musculoskeletal: NONE Psychiatric: anxiety, depression, psychosis, substance abuse Endocrine: NONE Blood Disorders: NONE Cancer(s): NONE ENTRY MANAGER/Reproductive: chlamydia History of MRSA: No History of VRE: No History of CDIFF: No Isolation History: Standard Tetanus Vaccine: 03/09/17 Surgical History Surgical History: NONE Psychiatric Family/Social Hx Family History Psychiatric Illness: There is no known past psychiatric history Substance Use: No known substance use in the family Suicides: Denied Social History Living Situation: Lives with his mother Significant Relationships (family/friends): His mother and his sister Education: He reached his ludmila year in high school 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 - #1 Recognizing dangerous situations. - #2 Coping Skills. - #3 Basic information about quitting. Status of Tobacco Cessation Counseling: Not Applicable Cessation Med Status Not Applicable Alcohol Screening - ETOH screen POS if BAL >=80 or Audit-C>= M4/F3 Audit-C Score from Diag Assess: 0 Blood Alcohol Level: Laboratory Tests 07/06 1728 Toxicology Serum Alcohol (<10 MG/DL) < 10.0 Alcohol Use Screening Results: Neg per Audit C &/or BAL - If ETOH counseling indicated - the following topics are required. - #1 Express concern about the patient's - drinking at unhealthy levels, include informing - of national norms for moderate drinking: - men <= 14 drinks/week, max 4 drinks/occasion - women <= 7 drinks/week, max 3 drinks/occasion - #2 Providing feedback, including linking alcohol to - negative physical effects (liver injury, hypertension) - negative emotional effects (relationship problems and - depression) - negative occupational consequences (reduced work - performance) - #3 Advising the patient to abstain from alcohol or - to drink below national norms for moderate drinking - (as listed above). Status of ETOH Use Counseling: N/A B/C NO ETOH Use Metabolic Screening - Screen if on a Neuroleptic Medication - Metabolic screening should include: - Blood Pressure, BMI, Glucose or Hgb A1c, & a - Lipid profile from within the past 365 days. Metabolic Screening ([X]) Not Applicable, patient not on a neuroleptic. OR () Patient on a neuroleptic(s) . Enter below results for Hemoglobin A1C, and lipid panel if obtained during the last 365 days. BMI: 22.200 Blood Pressure: 146/93 Laboratory Results From [facility] (If applicable): Lab Cholesterol 207 MG/DL H 03/11/17643 Cholesterol/HDL Ratio 4 % 03/11/17643 HDL Cholesterol 53 mg/dL 03/11/17643 Hemoglobin A1c 5.1 % 03/11/17643 LDL Cholesterol, Calc 135 mg/dL H 03/11/17643 Triglycerides 96 mg/dL 03/11/17643 Exam and Plan Mental Status Examination Ambulation Status: Patient is fully mobile Appearance: Unremarkable Attitude towards examiner: Hostile Psychomotor activity: Increased psychomotor activity Behavior: Agitated Quality of speech: Talkative with pressure Affect: Irritated angry Mood: Denied feeling depressed Suicidal Ideation: Denied Homicidal Ideation: Denied Hallucinations: Denied Paranoid/Delusional Material: Patient is paranoid Difficulties with thought organization: Patient is coherent however he is obsessing about what seems paranoid thoughts about his mother's intentions as well as the treatment team's intentions Insight: Poor insight Judgment: poor Judgment Orientation: Oriented to time place and person Cognition: Poor attention and concentration Memory Function: No deficits Estimate of intellectual functioning: Average Assets/Strengths Patient Identified Assets/Strengths: Assertive and resourcfull Impression/Plan Impression and Plan: The 26-year-old single known to me from his previous treatment at the intensive outpatient program. Presents similar to previous presentations. He seems to have been in a psychotic state probably complicated by his substance use - Include all active medical diagnosis that require tx DSM 5 Diagnosis(es): Psychotic disorder not otherwise specified Cannabis use disorder Hallucinogen use disorder - Initial Tx Plan for Active Psych & Medical Conditions Treatment Plan: Inpatient psychiatric care with 15 minute checks for safety The patient was prescribed oral haloperidol Group therapy, milieu therapy, activities therapy And nursing to evaluate safety evaluations once a shift Social work to reach out to family and start discharge planning The patient will be evaluated by the psychiatrist once a day - Factors that would help patient function - in a less restrictive setting. Factors: The patient's compliance with medication and abstinence from substances
--- NOTE | 2017-07-08 16:55 | SOCIAL WORKER PROG NOTE PSYCH ---
Social Work Progress Note Progress Note Rigo had been agitated this morning and required IMs. As such Rigo slept and continues to sleep at the time of this note. Manometer Technician attempted to meet with Rigo throughout the day but was unable to do so due to his sedation.
[2017-07-08 20:02] VITALS: BP 135/77
--- NOTE | 2017-07-09 10:41 | SOCIAL WORKER PROG NOTE PSYCH ---
Social Work Progress Note Progress Note Ankur was sitting in the lounge. Eager to meet to discuss discharge plans. States he is doing well. His facial expression didn't match his verbalization. Pointed that contradiction out to him. He stated he was still feeling a little angry about everything that happened. He is denying that there is a current mental health problem. Stated he is angry with his Mom for having him brought here. He denies that he was having any psychosis prior to admission. States he lays in the bathtub regularly and listens to music. He doesn't understand what the big deal is about this time. He denied seeing demons as stated in the crisis report. He said that was not true and doesn't know where that came from. I asked if it was possible that he didn't remember things in the ER. He said "no." He stated that he is not returning to his Mother's house and that she is "cut off." He said he will be staying with his sister Dania ([id number]). She lives with a friend here in [place]. He signed a release for me to speak with her. He denies any current drug use, despite his urine having trace amounts of PCP. Denies marijuana use and states he hasn't smoked since his last admission. Reports he has been active in [facility] and hasn't missed a day. Would be willing to return to their program. I called and left a voicemail for his sister [phone]. A short time later, there was a voicemail left by Ankur's Mother. Ankur was not in agreement for me to call his Mother back. He began to get more agitated stating that the doctor is not listening to him and that he wants another doctor. He also asked to file a complaint about how he was treated in the ED. He was given the number for patient safety. Security had to come down and he was refusing an increase in his Injectable medication. He finally accepted the injection. Has been calm and in his room since that point.
--- NOTE | 2017-07-09 11:28 | CP SOUTH PROGRESS NOTE PSYCH ---
Psych (Inpt) Progress Note Progress Note The patients progress and treatment reviewed in multidisciplinary team meeting Summary; A 26-year-old single who was brought into the emergency room after his mother called 911. The patient believes that he does not need to be here. He claims that his mother is the one who has the problem. The patient has had previous admissions to Inpatient Psychiatry under similar circumstances. The patient had some cannabis in his urine and some PCP (trace amounts)The patient's mother called 911 because he locked himself in the bathroom reportedly for 3 hours. The patient reported that he was rapping in the bathroom and that the hypertrophy relaxes him. Mental Status Examination Hostile, irritable, with extremely suspicious /paranoid attitude, increased psychomotor activity, agitated, talkative with pressure Irritated angry Denied feeling depressed Ankur denied thoughts of suicide, denied thoughts of homicide He denied hallucinations, he denied feeling paranoid (but he is paranoid) He has mild difficulties with thought organization and obsessing about what seems paranoid thoughts about his mother's intentions as well as the treatment team's intentions Poor insight and poor Judgment Oriented to time place and person Poor attention and concentration, no deficits in memory, average intellectual functioning: Impression and Plan: 26-year-old single admitted due to what seems to have been a psychotic state probably complicated by his substance use DSM 5 Diagnosis(es): Psychotic disorder not otherwise specified Cannabis use disorder Hallucinogen use disorder Treatment Plan Update: Continue Inpatient psychiatric care with 15 minute checks for safety Continue haloperidol Continue Group therapy, milieu therapy, activities therapy And nursing to evaluate safety evaluations once a shift Social work to reach out to family and start discharge planning The patient will be evaluated by the psychiatrist once a day
[2017-07-09 15:56] VITALS: BP 128/79
[2017-07-09 19:53] VITALS: BP 116/73
[2017-07-10 08:44] VITALS: BP 126/50
--- NOTE | 2017-07-10 10:06 | SOCIAL WORKER PROG NOTE PSYCH ---
Social Work Progress Note Progress Note Completed [facility] online concurrent review for continued stay. SW to check [facility] website for next review date.
--- NOTE | 2017-07-10 11:17 | CP SOUTH PROGRESS NOTE PSYCH ---
Psych (Inpt) Progress Note Progress Note The multidisciplinary treatment team memebers discussed Ankur's progress and treatment Summary; Ankur is a 26-year-old single who was brought into the emergency room on a PEER after he locked himself in the bathroom reportedly for 3 hours (he reported that he was rapping in the bathroom and that the hot water relaxes him). The patient has had previous admissions to Inpatient Psychiatry under similar circumstances. The patient had some cannabis in his urine and some PCP (trace amounts) Mental Status Examination: Ankur is still stand-offish/guarded but less hostile compared to the previous few days. He is a tiny bit less irritable, still having a suspicious attitude, normal psychomotor activity, less agitated, he was neither talkative nor pressured today (on the contrary, he was disinclined to engage in conversation). Ankur denied feeling depressed and denied feeling hopeless or worthless. Ankur denied thoughts of suicide, denied thoughts of homicide, and he denied hallucinations, He is focused on discharge and nothing else, still showing poor insight and poor judgment, he was oriented to time place and person, poor attention and concentration, no deficits in memory Impression and Plan: 26-year-old single admitted due to what seems to have been a psychotic state probably complicated by his substance use. He is showing progress/ improvement with less hostility, less agitation and less paranoia DSM 5 Diagnosis(es): Psychotic disorder not otherwise specified (likely schizophrenia spectrum ?) Cannabis use disorder Hallucinogen use disorder Treatment Plan Update: Continue inpatient psychiatric care with 15 minute checks for safety Continue haloperidol oral (5 mg at bedtime) Haloperidol Decanoate 50 mg IM today Continue Group therapy, milieu therapy, activities therapy Continue nursing assessment once a shift Continue discharge planning Continue daily evaluations by a psychiatrist
--- NOTE | 2017-07-10 12:02 | SOCIAL WORKER PROG NOTE PSYCH ---
Social Work Progress Note Progress Note Ankur wanted to sign a release for his Mom today. Stated he talked with her last night and the conservation went well. He stated "my Mom wants me to come home." He is eager to get out of the hospital and return to work. I told him I would try to set up a meeting with his Mom. Called Mrs. Ellison. She would like him to come home. She said they had a good conversation and he said he was "homesick." She said he was doing well up until 07/04. He went out that night, she isn't sure where he went or what he was doing. Reports he got strange after that and wouldn't allow her in the bathroom for hours at a time. She is open to coming in on Thursday at 11:30am. She would like to have a few minutes with this mortgage or loan underwriter and the doctor prior to bringing him in to the meeting. She feels he is struggling to recognize his mental health symptoms. She also feels like she is being put in the role of being "the bad antwan" most of the time, because she calls the ambulance or mobile crisis. She asked if there were any in home services to engage Ankur. I mentioned maybe [facility] management or [facility] support. These are options that could be discussed. Contacted Alma Quiroz (IOP coordinator at ) to discuss referral back to the program.
[2017-07-10 12:13] VITALS: BP 123/72
[2017-07-10 16:28] VITALS: BP 117/69
[2017-07-10 19:49] VITALS: BP 123/70
[2017-07-11 08:17] VITALS: BP 129/70
--- NOTE | 2017-07-11 12:02 | CP SOUTH PROGRESS NOTE PSYCH ---
Psych (Inpt) Progress Note Progress Note Include the following elements, when applicable: Involvement in the active treatment of the patient with behavioral observations of the patient and the patient's response to the treatment. Review of the ongoing treatment process in the context of the treatment plan. Indication of how multi-disciplinary staff members are carrying out the treatment plan. Plans for future interventions and recommendations for revision of the treatment plan. Liaison with other physicians/providers. Progress Note: Chart reviewed. Progress discussed with nursing staff. Interviewed patient this morning. Patient was only superficially engaged with me this morning during interview, however at that time he denied any complaints, including any physical complaints. Says his mood was "the usual ", denied any manic symptoms, denied any auditory visual hallucinations, denied any SI or HI. Per nursing report, later on, patient reporting some back and jaw stiffness after being asked specifically whether he had back or jaw stiffness. Vital signs were reviewed and were within normal limits. There are no new laboratory results today. Mental status exam: Well groomed man of apparent stated age. No psychomotor retardation or agitation. No abnormal movements noted. Speech was limited in amount and quiet. Mood was "the usual ", affect was blunted, non- labile. Thought process was impoverished. Denies SI or HI. Denied perceptual disturbances. Cognition was grossly intact. Insight and judgment were limited. Assessment and plan: 26-year-old man with likely diagnosis of schizophrenia versus schizoaffective disorder presented with increased psychotic symptoms, likely complicated by cannabis use. He was administered Haldol Decanoate yesterday, with some question as to whether or not he is demonstrating some mild EPS today. Will add Cogentin 1 mg twice a day to determine whether this makes any improvement and continue to monitor closely. He has been administered Haldol numerous times previously without any suggestion of EPS, which is reassuring. Otherwise will continue present management as per primary team.
[2017-07-11 12:17] VITALS: BP 106/51
[2017-07-11 15:36] VITALS: BP 122/74
[2017-07-11 20:35] VITALS: BP 112/69
[2017-07-12 08:21] VITALS: BP 118/72
--- NOTE | 2017-07-12 11:35 | CP SOUTH PROGRESS NOTE PSYCH ---
Psych (Inpt) Progress Note Progress Note Include the following elements, when applicable: Involvement in the active treatment of the patient with behavioral observations of the patient and the patient's response to the treatment. Review of the ongoing treatment process in the context of the treatment plan. Indication of how multi-disciplinary staff members are carrying out the treatment plan. Plans for future interventions and recommendations for revision of the treatment plan. Liaison with other physicians/providers. Progress Note: Chart reviewed. Progress discussed with nursing staff. Interviewed patient this morning. Throughout the day yesterday patient increasingly complained of muscle stiffness and pain diffusely, including his back and upper and lower extremities. He was not observed to have any severe dystonic reaction. His symptoms were improved by Benadryl and Ativan. The hospitalist on duty was consulted who recommended laboratory tests for CK and prolactin levels. Both were moderately elevated. He did not demonstrate any vital abnormalities, including remaining afebrile, and ultimately slept well. I held his evening and morning Haldol doses as well. This morning Rigo is alert, oriented, reports feeling much better than yesterday. He denies any acute complaints. Denies any AVH, SI, or HI. We discussed further holding his Haldol today which is in agreement with. We also discussed the importance of his bringing any new symptoms to the attention of the nursing staff. Vital signs were reviewed and were within normal limits. Labs from yesterday: CK 639, Prl 37. Physical exam: There was no rigidity or spasticity in his upper or lower extremities. He had full passive and active range of motion. There was no hyperreflexia as noted by an bilateral ankle jerks. He was observed resting comfortably prior to interview. Mental status exam: Well groomed man of apparent stated age. No psychomotor retardation or agitation. No abnormal movements noted. SEe physical exam above. Speech was limited in amount and quiet. Mood was "fine", affect was blunted, non-labile. Thought process was impoverished. Denies SI or HI. Denied perceptual disturbances. Cognition was grossly intact. Insight and judgment were limited. Assessment 26-year-old man with likely diagnosis of schizophrenia versus schizoaffective disorder presented with increased psychotic symptoms, likely complicated by cannabis use. He has now had two doses of haldol decanoate, 50 mg on Jun 30 and 50 mg on Jul 10 with some PO overlap. His development of muscle stiffness and pain yesterday is difficult to characterize, and may be EPS. Also on the differential is NMS, which is supported by an elevated CK and recent administration of high potency neuroleptics. Arguing against is lack of lead pipe rigidity and lack of fever. Further, his elevated CK may be secondary to a number of causes, including multiple administrations of IM medication as well as recent restraint episodes. Furthermore, it is unclear what his baseline prolactin level as especially given his history of neuroleptic administration. My understanding is that the prolactin was drawn to rule out any seizure activity, and its level, at only slightly higher than twofold range of normal, argues against TC seizure. Plan: Though my suspicion of NMS is low at this time, any concern for NMS in an individual who has received a depot neuroleptic would be extremely serious. Therefore, I will hold all high potency neuroleptics at this time, hold Cogentin as this is been noted to potentially aggravate NMS, and will attempt to use benzodiazepines to manage any agitation or muscle stiffness. Nursing will check his vitals every 4 hours, including temperature. I will also repeat a full set of laboratory assessments for tomorrow morning.
[2017-07-12 12:10] VITALS: BP 113/59
[2017-07-12 15:24] VITALS: BP 109/58
[2017-07-12 20:25] VITALS: BP 114/72
[2017-07-13 07:56] LABS: ABSOLUTE BASOPHIL COUNT 0 /CUMM (0.0-0.2); ABSOLUTE EOSINOPHIL COUNT 0.3 /CUMM (0.0-0.7); ABSOLUTE GRANULOCYTE CT 5.3 /CUMM (1.4-6.5); ABSOLUTE LYMPH COUNT 2.8 /CUMM (1.2-3.4); ABSOLUTE MONOCYTE COUNT 0.7 /CUMM (0.10-0.60); BASOPHIL % 0.5 % (0.0-2.0); EOSINOPHIL % 3.4 % (0-5); GRANULOCYTE % 58.1 % (42.2-75.2); HEMATOCRIT 42.7 % (42-52); MEAN CORPUSCULAR HGB 29.7 PG (27.0-31.0); MEAN CORPUSCULAR HGB CONC 33.9 G/DL (33.0-37.0); MEAN CORPUSCULAR VOLUME 87.6 FL (80.0-94.0); MEAN PLATELET VOLUME 8.2 FL (7.4-10.4); PLATELET COUNT 220 /CUMM (130-400); RBC DISTRIBUTION WIDTH 12.9 % (11.5-14.5); RED BLOOD CELL CT 4.87 /CUMM (4.70-6.10); WHITE BLOOD CELL COUNT 9.2 /CUMM (4.8-10.8)
[2017-07-13 08:19] VITALS: BP 117/72
--- NOTE | 2017-07-13 10:59 | SOCIAL WORKER PROG NOTE PSYCH ---
Social Work Progress Note Progress Note Rigo was in his room this morning. Stated he had a miserable weekend, due to feeling "homesick." Talked about doing a referral for him to [facility] because they could possibly provide more services for him for support. He was fine with me doing the referral and signed the release. Reminded him of the family meeting this morning. Faxed clinical to Tram at [facility]. Talked to Tram, who was able to provide an intake appt. for 07/17 8:30am. Asked about him receiving [facility] services ? She said they will assess for that, but the age limit is 24. If Ankur comes to their dual IOP he will be seen by a prescriber there soon. Ankur's Mother came in for a meeting. Dr. Benitez and I met with her initially and then called Ankur in after. She just expressed concern about him following up on services and nervous that he would be changing to another provider. Her preference was for Ankur to stay with [facility], because he feels comfortable with people there and people know him. We explained that because that option had been given to Ankur several times and it hasn't been working, it was recommended that something else be tried for now. Also informed that [facility] can give him case management and individual therapy. 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 Enforced the idea that his Mom is wanting what is best for him and not doing these things to hurt him. The VNS will no longer be in place, due to Ankur only needing an injection 1x a month. Next injection will be due 4 weeks from 07/10. Talked about going home today. Ankur's sister will pick him up from the hospital. Provided Ankur a letter for his job. Left [facility]'s recruitment coordinator Tram information about IOP being tentative and the injection being due in 4 weeks from 07/10.
[2017-07-13 12:05] VITALS: BP 110/68
[2017-07-13] MEDS ORDERED: HALDOL DEC100 MG/1 M IM (14:01)
--- NOTE | 2017-07-13 16:29 | CP SOUTH PROGRESS NOTE PSYCH ---
Psych (Inpt) Progress Note Progress Note The multidisciplinary treatment team memebers discussed Ankur's progress and treatment I met with patient and his mother with Diamond Okeefe LCSW Mental Status Examination: Ankur was less irritable/less hostile. He smiled a couple of times. less suspicious attitude, normal psychomotor activity, less agitated, he was neither talkative nor pressured today Ankur denied feeling depressed and denied feeling hopeless or worthless. Ankur denied thoughts of suicide, denied thoughts of violence or homicide, and he denied hallucinations, He is focused on discharge, minor improvement in insight and judgment, he was oriented to time place and person, poor attention and concentration, no deficits in memory Impression and Plan: 26-year-old single admitted due to what seems to have been a psychotic state probably complicated by his substance use. 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
--- NOTE | 2017-07-13 16:30 | DISCHARGE SUMMARY REPORT-PSYCH ---
Visit Information Visit Dates/Diagnosis' Admission Date: 07/07/17 Discharge Date: 07/13/17 Reason for Admission: Ankur is a 26-year-old single who was admitted through the emergency room at [facility] due to what seemed to be an acute acute psychotic decompensation. Psy Discharge Primary Diag: Mood Disorder, Psychotic Disorder Psy Discharge Secondary Diag: Polysubstance Dependence Hospital Course Significant Lab Findings: Ankur urine toxicology was positive for cannabis It had trace amounts of methadone trace amounts of amphetamine and trace amounts of PCP Course Complications: None Consultations: There was a history and physical examination done by the hospitalist Dr. Zheng Pichardo M.D. on 07/07/2017 No physical health issues were identified Allergies: Coded Allergies: NO KNOWN ALLERGIES (02/05/16) Hospital Course/TX Response: Ankur alright in the emergency department and to [facility] on July 07 and he was admitted in the late afternoon hours/every evening hours In the first 2 days on the unit Ankur was irritable agitated belligerent and focused on getting discharged. Security had to be called numerous times. He initially reported that he has no intention of taking any medications. He reported that he does not believe that he has any psychiatric illness and he does not believe that he needs any medications. He was consistently blaming his mother for his hospitalization. Starting on July 10 although he was still guarded and paranoid and not engaged he did start taking oral Haldol and he indicated that he may be willing to take an injection of Haldol decanoate. Ankur was given Haldol Dec injection on 2016 for 50 mg. He was given another 50 mg on July 10. Over the weekend of the and the montessori paraprofessional psychiatrist rounding on Inpatient Psychiatry noticed that the patient had some dystonic symptoms and the oral Haldol was discontinued. On the July 13 the patient seemed to be in better spirits and he was less irritable and less belligerent. He was no longer angry with his mother. Initially he stated that he won't be going to live with her anymore and that he would be living with his sister. Looks like he changed his mind over the weekend of July 11 and and we had family meeting with Ankur and his mother. We discussed his progress since admission since admission on Inpatient Psychiatry we also discussed aftercare plans and the feeling of the inpatient team and the intensive outpatient program at [facility] that going back to the intensive outpatient program at [facility] was not the proper clinical course since he has done this several times and was not able to participate fully in the program. There are also several hospitalizations when he was in the intensive outpatient program it was also felt that he needed a case management from [facility] or will soon need case management from [facility] the patient reported that he was previously with [facility] but only for a short period of time he thinks it was only a week. He reported that he is willing to go back to [facility]. 2 potential issues that may interfere with his full participation in [facility] is IOP with identified the first one was at his work schedule: He has a new job at a [employer], the mother however reported that they are very flexible with him because his sister works at the same car [employer]. The second issue was transportation, and he was advised about the possibility of medical transportation for him. Soledad Mancera LCSW gave the patient and family resources about sitting up transportation and they were informed that it would have to be done 40 at 48 hours and advance and that the may have the option of sitting up in his regular schedule for pickup and drop off depending on the IOP' s hours. Mental status examination upon discharge: Ankur was alert and oriented to time place and person. He seemed less irritable and less hostile and smiled a couple times during the family meeting. Ankur was less suspicious in his interactions. He showed normal psychomotor activity there was no observable dystonia or akathisia. He was less agitated. His speech was normal: I talked was neither pressured nor slurred. Ankur denied feeling depressed, denied feeling hopeless or worthless, denied wishing for or thinking of suicide. He denied thoughts of violence or homicide. He denied hallucinations. There was a minor improvement is and his insight and judgment. There was no evidence of memory deficits. Assessment: Ankur is a 26-year-old single who was admitted in what sounded like a psychotic state probably complicated by substance abuse. He showed moderate improvement during his stay on the inpatient psychiatric unit and he was given a second injection of Haldol depot 50 mg on July 10. It was the feeling of the clinical team, and of course the patient, that he was ready for discharge to continue his treatment in an intensive outpatient setting. Plan: Discharge home to live with mother Intensive outpatient treatment with [facility] Discharge HBIPS - Tobacco Use Treatment Offered Post DC Medications Offered: Not Applicable Post DC Tobacco Treatment Plan: Not Applicable - EtOH/Drug Use D/O Treatment Offered Post DC Medications Offered: Med Not Indicated for D/O Post DC EtOH/SubAbuse TX Plan: Other SubAbuse/Dual Pgm Metabolic Screening - Screen if on a Neuroleptic Medication - Metabolic screening should include: - Blood Pressure, BMI, Glucose or Hgb A1c, & a - Lipid profile from within the past 365 days. Discharge Instructions General Discharge Information Multiple Neuroleptics: ([X]) Not Applicable OR Document below three failed attempts at monotherapy, or a plan to taper to monotherapy, or augmentation of Clozapine. () Discharge Diet Regular Discharge Activity Normal DC Disposition: Home with [facility] IOP Referrals Ordered Referrals Provider Referral 07/17/17 For Groups: [[facility] ] [facility] Intake 07/17/17 8:30am Orientation for dual IOP is To be determined after intake by [facility] staff [address] [place] [id number] Provider Referral For Groups: Outpatient Psychiatry Prescriptions Stop taking the following medications: Naltrexone HCl (Naltrexone HCl) 50 MG TABLET ORAL DAILY Qty = 14 Quetiapine Fumarate (Quetiapine Fumarate) 100 MG TABLET ORAL AT BEDTIME Qty = 14 Quetiapine Fumarate (Seroquel) 50 MG TABLET ORAL Every Morning Qty = 14 Continue taking these medications: Haloperidol Decanoate (Haldol Decanoate 100) 100 MG/ML AMPUL 100 Milligram INTRAMUSC Qty = 1 Instructions: 100 mg every 4 weeks Comments: Last Taken:07/10/17 RECEIVED 50 MG IM Time:1330 Copies To: [facility]
--- NOTE | 2017-07-13 16:43 | SOCIAL WORKER PROG NOTE PSYCH ---
Social Work Progress Note Faxed Referral(s) Referred To: [facility] Transition of Care Documents sent: Health Summary Faxed to: Tram in intake Fax #: [phone] Faxed by: Diamond Okeefe Date faxed: 07/13/17 Time Faxed: [phone]
--- NOTE | 2017-07-13 16:46 | SOCIAL WORKER PROG NOTE PSYCH ---
Social Work Progress Note Progress Note Faxed referral to [facility] for IOP level of care.
== END 2017-07-13 14:12 | DRG 885 ==
LOC: ERH 16:40 → ERHI 07-07 10:47 → CP SOUTH 07-07 10:47 → ENRESERV 07-07 16:06 → ENTRNSPT 07-07 16:09 → CMPTRNSPT 07-07 16:32 → CP SOUTH 07-07 18:39
PROVIDERS: Emergency Medicine; Psychiatry & Neurology Psychiatry
DX: F39 Unspecified mood [affective] disorder (principal)
CPT/HCPCS: 36415; 80307; 81001; 82436; 96372; G0463; G0480; J1200; J1630; J1631; J2060

== ENCOUNTER 2017-08-19 21:16 | Emergency (ER) | payer OTHER ==
[~2017-08-19] VITALS: Ht 172.7 cm; Wt 68.0 kg
[~2017-08-19 21:16] MED LIST changes: +BENADRYL25 MG PO; +HALDOL DEC100 MG/1 M IM; +PREDNISONE10 M2 PO
--- NOTE | 2017-08-19 22:59 | ED PSYCHIATRIC COMPLAINT ---
History of Present Illness General Chief Complaint: Psychiatric Related Complaint Stated Complaint: ANGER ISSUES Source: patient, family, old records Exam Limitations: no limitations Vital Signs & Intake/Output Vital Signs & Intake/Output Vital Signs Date Time Temp Pulse Resp B/P B/P Pulse O2 O2 Flow FiO2 Mean Ox Delivery Rate 08/19 2308 97.8 96 18 112/68 97 Room Air 08/19 2123 97.4 83 16 127/80 95 Room Air Allergies Coded Allergies: NO KNOWN ALLERGIES (02/05/16) Reconcile Medications diphenhydrAMINE HCl (Benadryl) 25 MG CAP 2 CAP PO Q6H PRN ITCHING Haloperidol Decanoate (Haldol Decanoate 100) 100 MG/ML AMPUL 100 MG IM psychosis (Reported) 100 mg every 4 weeks Prednisone 10 MG TABLET 1 DOSE PO ONCE DAILY ALLERGIC REACTION 5 TABS X 3 DAYS, 4 TABS X 3 DAYS, 3 TABS X 3 DAYS THEN 2 TABS X 3 DAYS THEN 1 TAB X3 DAYS Triage Note: PT PRESENTS TO THE ER C/O ANXIETY AND PACING BACK AND FORTH. PT STATES THAT HE CANT SLEEP.. PT DENIES SI, DENIES HI.. PT STATES THAT HE IS NOT TAKING HIS MEDICATIONS. Triage Nurses Notes Reviewed? yes HPI: Patient presents to the emergency department because he is feeling anxious and is pacing. Patient is currently on Haldol IM which is given by a nurse that comes was house. Patient has a history of med noncompliance so all of his other medications was stopped and he is currently just on the Haldol. Patient denies any suicidal or homicidal ideations. Patient is not exhibiting disorganized thought patterns. Patient asked his mom to bring him in for evaluation. Past History Travel History Traveled to [place] past [place] day No Medical History Any Pertinent Medical History? see below for history Neurological: NONE EENT: NONE Cardiovascular: NONE Respiratory: NONE Gastrointestinal: NONE Hepatic: NONE Renal: NONE Musculoskeletal: NONE Psychiatric: anxiety, depression, psychosis, substance abuse Endocrine: NONE Blood Disorders: NONE Cancer(s): NONE TELE TECH/Reproductive: chlamydia History of MRSA: No History of VRE: No History of CDIFF: No Tetanus Vaccine: 03/09/17 Surgical History Surgical History: non-contributory, N Psychosocial History Who do you live with Mother What is your primary language Mohawk Tobacco Use: Current Daily Use Daily Tobacco Use Amount/Type: => 5 Cigarettes daily ETOH Use: denies use Illicit Drug Use: denies illicit drug use Family History Hx Contributory? No Review of Systems Review of Systems Constitutional: Reports: no symptoms. EENTM: Reports: no symptoms. Respiratory: Reports: no symptoms. Cardiovascular: Reports: no symptoms. GI: Reports: no symptoms. Genitourinary: Reports: no symptoms. Musculoskeletal: Reports: no symptoms. Skin: Reports: no symptoms. Neurological/Psychological: Reports: see HPI, anxiety. Hematologic/Endocrine: Reports: no symptoms. Immunologic/Allergic: Reports: no symptoms. All Other Systems: Reviewed and Negative Physical Exam Physical Exam General Appearance: well developed/nourished, mild distress Head: atraumatic Eyes: Bilateral: PERRL, EOMI. Ears, Nose, Throat: normal pharynx, normal ENT inspection, hearing grossly normal Neck: normal inspection, supple Respiratory: normal breath sounds, chest non-tender, no respiratory distress, lungs clear Cardiovascular: regular rate/rhythm, normal peripheral pulses Gastrointestinal: normal bowel sounds, soft, non-tender Extremities: normal range of motion Neurological/Psychiatric: no motor/sensory deficits, awake, alert, anxious, oriented x 3 Appearance/Memory/Insight: appropriate appearance, appropriate insight Behavoir/Eye Contact/Speech: cooperative, normal speech, good eye contact Thoughts/Hallucinations: normal thought pattern, no apparent hallucination Skin: intact, normal color, warm/dry SAD PERSONS Done? patient not suicidal Progress Differential Diagnosis: drug intoxication, drug overdose, drug withdrawal, electrolyte abnormality Plan of Care: Laboratory Tests 08/19/172123: Serum Alcohol Cancelled 08/19/172123: CBC w Diff Cancelled, WBC Cancelled, RBC Cancelled, Hgb Cancelled, Hct Cancelled , MCV Cancelled, MCH Cancelled, MCHC Cancelled, RDW Cancelled, Plt Count Cancelled, MPV Cancelled, Methadone Screen Cancelled, Barbiturate Screen Cancelled, Ur Phencyclidine Scrn Cancelled, Amphetamines Screen Cancelled, U Benzodiazepines Scrn Cancelled, Urine Cocaine Screen Cancelled, Urine Cannabis Screen Cancelled Comments: Patient does not want to stay overnight in the emergency department to talk to crisis. Mom feels comfortable taking him home. Departure Departure Disposition: HOME OR SELF CARE Condition: Stable Clinical Impression Primary Impression: Anxiety Referrals: Patient Has No Primary Care Dr (PCP/Family) Additional Instructions: RETURN IN THE MORNINGN TO SEE CRISIS OR SOONER FOR ANY CONCERNS CALL 211 OR RETURN IMMEDIATELY TO THE ER FOR ANY CONCERNS OF HARMING YOURSELF OR ANYONE ELSE. Departure Forms: Customer Survey General Discharge Information
[2017-08-19 23:08] VITALS: BP 112/68
== END 2017-08-19 23:14 ==
LOC: ERH 21:16
DX: F41.9 Anxiety disorder, unspecified (principal)
CPT/HCPCS: 80307; G0480

== ENCOUNTER 2017-11-08 06:31 | Emergency (ER) | payer OTHER ==
[~2017-11-08] VITALS: Ht 172.7 cm; Wt 65.8 kg
--- NOTE | 2017-11-08 06:41 | ED GENERAL ADULT ---
History of Present Illness General Chief Complaint: Animal/Insect Bite Stated Complaint: DOGBITE Source: patient Exam Limitations: no limitations Vital Signs & Intake/Output Vital Signs & Intake/Output Vital Signs Date Time Temp Pulse Resp B/P B/P Pulse O2 O2 Flow FiO2 Mean Ox Delivery Rate 11/08 0851 97.0 76 15 97/60 97 Room Air Room Air 11/08 0634 98.3 69 18 121/83 98 Room Air Allergies Coded Allergies: NO KNOWN ALLERGIES (02/05/16) Triage Note: PT FROM HOME C/O DOG BITE TO PTS RIGHT HAND 20 MINS PRIOR TO ARRIVAL. PT STATES HE WALKED INSIDE THE HOUSE TO HELP HIS NEIGHBOR, PT WAS MOVING A METAL OBJECT FROM THE DOGS FOOD BOWL WHILE THE DOG WAS EATING AND THE PITBULL BIT PTS RIGHT HAND. PT STATES THE PITBULL IS UTD ON THE SHOTS. PT STATES UNKNOWN IF PT IS UTD ON RABIES OR TETANUS. VSS. BLEEDING CONTROLLED IN TRIAGE. PTS HAND SWOLLEN, PT HAS MULTIPLE PUNCTURE WOUNDS TO RIGHT HAND AND FINGERS. Triage Nurses Notes Reviewed? yes Onset: Abrupt Duration: hour(s): Timing: recent history Injury Environment: neighbor's Severity: moderate Modifying Factors: Improves With: rest. Worsens With: movement. Associated Symptoms: right hand swelling HPI: 27 y gentleman presents with right hand pain after being bit by the neighor's bit pull. He states, "There was a metal pole in his food bowel... I went in to plug it out, but then the dog bit me." The dog was otherwise behaving normally. Per the mother, "They said its shots are up to date." He notes right hand swelling, tenderness. Minimal bleeding. (Soy HENDERSON,Thor Husain) Reconcile Medications Amoxicillin/Potassium Clav (Augmentin 875-125 Tablet) 875 MG-125 MG TABLET 1 TAB PO BID dog bites diphenhydrAMINE HCl (Benadryl) 25 MG CAP 2 CAP PO Q6H PRN ITCHING Haloperidol Decanoate (Haldol Decanoate 100) 100 MG/ML AMPUL 100 MG IM psychosis (Reported) 100 mg every 4 weeks Hydrocodone/Acetaminophen ([place] 5-325 Tablet) 5 MG-325 MG TABLET 1-2 TAB PO Q4-6 PRN PRN severe pain Ibuprofen 600 MG TABLET 1 TAB PO TID PRN pain with food Prednisone 10 MG TABLET 1 DOSE PO ONCE DAILY ALLERGIC REACTION 5 TABS X 3 DAYS, 4 TABS X 3 DAYS, 3 TABS X 3 DAYS THEN 2 TABS X 3 DAYS THEN 1 TAB X3 DAYS (Brayan Walsh MD) Past History Travel History Traveled to [place] past [place] day No Medical History Any Pertinent Medical History? see below for history Neurological: NONE EENT: NONE Cardiovascular: NONE Respiratory: NONE Gastrointestinal: NONE Hepatic: NONE Renal: NONE Musculoskeletal: NONE Psychiatric: anxiety, depression, psychosis, substance abuse Endocrine: NONE Blood Disorders: NONE Cancer(s): NONE FUSION OPERATOR/Reproductive: chlamydia History of MRSA: No History of VRE: No History of CDIFF: No Tetanus Vaccine: 03/09/17 Surgical History Surgical History: non-contributory, N Psychosocial History Who do you live with Mother What is your primary language Kazakh Tobacco Use: Current Daily Use Daily Tobacco Use Amount/Type: =< 4 Cigarettes daily Family History Hx Contributory? No (Soy HENDERSON,Thor Husain) Review of Systems Review of Systems Constitutional: Reports: no symptoms. EENTM: Reports: no symptoms. Respiratory: Reports: no symptoms. Cardiovascular: Reports: no symptoms. GI: Reports: no symptoms. Genitourinary: Reports: no symptoms. Musculoskeletal: Reports: no symptoms. Skin: Reports: no symptoms. Neurological/Psychological: Reports: no symptoms. Hematologic/Endocrine: Reports: no symptoms. Immunologic/Allergic: Reports: no symptoms. All Other Systems: Reviewed and Negative (Soy HENDERSON,Thor Husain) Physical Exam Physical Exam General Appearance: well developed/nourished, mild distress Head: atraumatic, normal appearance Eyes: Bilateral: normal appearance. Ears, Nose, Throat: normal ENT inspection Neck: normal inspection Respiratory: no respiratory distress Extremities: right hand with moderate swelling. multiple punctate lacerations, one 1x1cm with slight oozing of blood. Neurologic/Psych: no motor/sensory deficits, awake, alert, oriented x 3 Skin: intact, normal color, warm/dry Core Measures ACS in differential dx? No CVA/TIA Diagnosis: No Sepsis Present: No Sepsis Focused Exam Completed? No (Soy HENDERSON,Thor Husain) Progress Differential Diagnoses I considered the following diagnoses in my evaluation of the patient: dog bite vs infection Plan of Care: Orders Procedure Date/time Status COMPREHENSIVE METABOLIC PANEL 11/08 06 Complete CBC WITHOUT DIFFERENTIAL 11/09 651 Complete Laboratory Tests 11/08/17 0659: Anion Gap 13, Estimated GFR > 60, BUN/Creatinine Ratio 16.3, Glucose 110 H, Calcium 9.6, Total Bilirubin 0.8, AST 21, ALT 27, Alkaline Phosphatase 58, Total Protein 7.9, Albumin 4.5, Globulin 3.4, Albumin/Globulin Ratio 1.3, CBC w Diff NO MAN DIFF REQ, RBC 4.81, MCV 87.5, MCH 29.3, MCHC 33.5, RDW 13.4, MPV 7.9, Gran % 82.0 H, Lymphocytes % 11.1 L, Monocytes % 5.9, Eosinophils % 0.7, Basophils % 0.3, Absolute Granulocytes 10.3 H, Absolute Lymphocytes 1.4, Absolute Monocytes 0.7 H, Absolute Eosinophils 0.1, Absolute Basophils 0 Initial ED EKG: none Hand-Off Endorsed To: Brayan Walsh MD Endorsed Time: 0700 Pending: labs, Xray (Thor Olivier MD) Diagnostic Imaging: Viewed by Me: Radiology Read. Discussed w/RAD: Radiology Read. Radiology Impression: no fracture, no foreign body seen, Dorsal hand soft tissue swelling associated with moderate linear subcutaneous emphysema tracking in the soft tissues dorsal to the metacarpal bones and distal dorsal wrist. The findings are compatible with the clinical history of a acute dog bite with associated subcutaneous gas. Correlate with any signs of infection. (Brayan Walsh MD) Departure Departure Condition: Stable Clinical Impression Primary Impression: Dog bite Referrals: Patient Has No Primary Care Dr (PCP/Family) Departure Forms: Customer Survey General Discharge Information (Thor Olivier MD) Departure Time of Disposition: 841 Disposition: HOME OR SELF CARE Prescriptions: Current Visit Scripts Amoxicillin/Potassium Clav (Augmentin 875-125 Tablet) 1 TAB PO BID #14 TAB Ibuprofen 1 TAB PO TID PRN pain #30 TAB with food Hydrocodone/Acetaminophen ([place] 5-325 Tablet) 1-2 TAB PO Q4-6 PRN PRN severe pain #15 TAB (Brayan Walsh MD) Critical Care Note Critical Care Note Critical Care Time: non-applicable (Thor Olivier MD)
[2017-11-08 07:24] LABS: ABSOLUTE BASOPHIL COUNT 0 /CUMM (0.0-0.2); ABSOLUTE EOSINOPHIL COUNT 0.1 /CUMM (0.0-0.7); ABSOLUTE GRANULOCYTE CT 10.3 /CUMM (1.4-6.5); ABSOLUTE LYMPH COUNT 1.4 /CUMM (1.2-3.4); ABSOLUTE MONOCYTE COUNT 0.7 /CUMM (0.10-0.60); BASOPHIL % 0.3 % (0.0-2.0); EOSINOPHIL % 0.7 % (0-5); HEMATOCRIT 42.1 % (42-52); MEAN CORPUSCULAR HGB 29.3 PG (27.0-31.0); MEAN CORPUSCULAR HGB CONC 33.5 G/DL (33.0-37.0); MEAN CORPUSCULAR VOLUME 87.5 FL (80.0-94.0); MEAN PLATELET VOLUME 7.9 FL (7.4-10.4); PLATELET COUNT 314 /CUMM (130-400); RBC DISTRIBUTION WIDTH 13.4 % (11.5-14.5); RED BLOOD CELL CT 4.81 /CUMM (4.70-6.10); WHITE BLOOD CELL COUNT 12.6 /CUMM (4.8-10.8)
[2017-11-08] MEDS ORDERED: AUGMENTIN 875-1 EACH PO (08:44)
[2017-11-08] MEDS ORDERED: NORCO 5-325 TA1 EACH PO (08:44)
[2017-11-08] MEDS ORDERED: IBUPROFEN600 M1 PO (08:44)
[2017-11-08 08:51] VITALS: BP 97/60
--- NOTE | 2017-11-08 09:08 | RADIOLOGY REPORT ---
EXAMINATION: XR HAND, RIGHT CLINICAL INFORMATION: Right hand pain. Additional history of acute dog bite 3 times. COMPARISON: 03/08/2017. TECHNIQUE: PA, lateral, and oblique views of the right hand. FINDINGS: Healed fifth metacarpal fracture is identified with chronic palmar angulation of the distal bone. No acute fracture or dislocation is seen. Moderate soft tissue swelling is seen dorsal to the hand with subcutaneous gas tracking in a linear fashion along the dorsal soft tissues at the metacarpal level and extending to the level of the dorsum of the wrist. Additionally, there is a focal defect noted in the dorsal skin of the hand at the metacarpal level. No additional findings. IMPRESSION: Dorsal hand soft tissue swelling associated with moderate linear subcutaneous emphysema tracking in the soft tissues dorsal to the metacarpal bones and distal dorsal wrist. The findings are compatible with the clinical history of a acute dog bite with associated subcutaneous gas. Correlate with any signs of infection. The findings were discussed with Dr. Nj.
== END 2017-11-08 08:54 ==
LOC: ERH 06:31
PROVIDERS: Pediatrics
DX: S61.451A Open bite of right hand, initial encounter (principal); W54.0XXA Bitten by dog, initial encounter; Y93.9 Activity, unspecified; Y92.9 Unspecified place or not applicable
CPT/HCPCS: 73130-RT; 90471; 90714; 96374; 96375; J1885

== ENCOUNTER 2017-12-19 12:05 | Emergency (ER) | payer OTHER ==
[~2017-12-19 12:05] MED LIST changes: +AUGMENTIN 875-1 EACH PO; +IBUPROFEN600 M1 PO; +NORCO 5-325 TA1 EACH PO
[2017-12-19 12:10] VITALS: BP 132/88
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
[2017-12-19] MEDS ORDERED: CIPRO500 M1 PO (12:51)
== END 2017-12-19 12:59 ==
LOC: ERH 12:05
DX: R36.9 Urethral discharge, unspecified (principal)
CPT/HCPCS: 81001; 87491; 87591; 96372; J0696